=== PATIENT | female | born 1965 | race Caucasian/White ===

== ENCOUNTER → 2020-09-18 | Outpatient (CLI) | payer OTHER | LOC: EXRD 12:58 | DX: M79.642 Pain in left hand (principal); M79.641 Pain in right hand; M85.88 Other specified disorders of bone density and structure, other site | CPT/HCPCS: 73130 ==

== ENCOUNTER → 2020-11-06 | Outpatient (CLI) | payer OTHER | LOC: EXRD 14:34 | DX: M85.80 Other specified disorders of bone density and structure, unspecified site (principal); M81.0 Age-related osteoporosis without current pathological fracture | CPT/HCPCS: 77080 ==

== ENCOUNTER → 2021-03-22 | Outpatient (CLI) | payer OTHER | LOC: EXRD 11:26 | DX: M54.50 Low back pain, unspecified (principal) | CPT/HCPCS: 72100 ==